=== PATIENT | male | born 1990 | race African-American/Black ===

== ENCOUNTER 2023-01-09 09:33 | Emergency (ER) | payer BC, OTHER ==
[2023-01-09 09:56] VITALS: BP 106/52; PULSE 54; RESP 18; TEMP 98.8; BMI 29.8
[2023-01-09] MEDS ORDERED: SODIUM CHLORIDE 1,000 ML IV STA ×2 (10:12→12:14)
[2023-01-09] MEDS ORDERED: ACETAMINOPHEN 1000 MG/100 ML BAG IVPB ONE (10:17)
[2023-01-09] MEDS ORDERED: ACETAMINOPHEN INJECTION 100 ML IVPB ONE (10:19)
[2023-01-09 11:33] LABS: BASO % 0.9 % (0-2.0); EOS % 1.9 % (0-4.5); HEMATOCRIT 40.8 % (35.4-49); HEMOGLOBIN 13.7 GM/dL (11.7-16.9); LYMPH % 52.7 % (8-40); MCH 27.2 pg (25.7-33.7); MCHC 33.6 g/dl (32.0-35.9); MEAN PLT VOLUME 9.1 fl (7.5-11.1); MONO % 9.3 % (3.8-10.2); NEUT % 35.2 % (42.8-82.8); PLATELET COUNT 178 10^3/uL (134-434); RBC 5.03 M/mm3 (4.00-5.60); RDW 14.3 % (11.9-15.9); WHITE BLOOD COUNT 3.9 K/mm3 (4.0-10.0)
[2023-01-09 11:34] LABS: PH,URINE 5.5 (5.0-8.0); URINE APPEARANCE CLEAR; URINE BILIRUBIN NEGATIVE (NEGATIVE); URINE COLOR YELLOW; URINE GLUCOSE (UA) NEGATIVE (NEGATIVE); URINE KETONE NEGATIVE (NEGATIVE); URINE LEUK ESTERASE NEGATIVE (NEGATIVE); URINE NITRITE NEGATIVE (NEGATIVE); URINE PROTEIN NEGATIVE (NEGATIVE); URINE UROBILINOGEN 0.2 mg/dL (0.2-1.0)
[2023-01-09 12:00] LABS: ALBUMIN 3.9 g/dl (3.4-5.0); CALCIUM 9.2 mg/dL (8.5-10.1)
[2023-01-09 12:03] LABS: CREATININE 1.6 mg/dL (0.55-1.3)
[2023-01-09 12:04] LABS: BILIRUBIN,TOTAL 0.5 mg/dL (0.2-1); TOT PROT 7.5 g/dl (6.4-8.2)
[2023-01-09 14:18] LABS: ALBUMIN 3.3 g/dl (3.4-5.0); BLOOD UREA NITROGEN 14.7 mg/dL (7-18); CALCIUM 8.1 mg/dL (8.5-10.1)
[2023-01-09 14:21] LABS: CREATININE 1.4 mg/dL (0.55-1.3)
[2023-01-09 14:23] LABS: BILIRUBIN,TOTAL 0.4 mg/dL (0.2-1); TOT PROT 6.3 g/dl (6.4-8.2)
== END 2023-01-09 15:11 | disposition home or self-care (01) ==
LOC: JERFT 09:33 → JER 09:33 → JERFT 15:11
PROC: 3E033GC Introduction of Other Therapeutic Substance into Peripheral Vein, Percutaneous Approach (ICD-10-PCS; principal; 2023-01-09)
PROC: 3E0337Z Introduction of Electrolytic and Water Balance Substance into Peripheral Vein, Percutaneous Approach (ICD-10-PCS; 2023-01-09)
PROC: 3E0337Z Introduction of Electrolytic and Water Balance Substance into Peripheral Vein, Percutaneous Approach (ICD-10-PCS; 2023-01-09)
DX: R35.0 Frequency of micturition (principal); M54.50 Low back pain, unspecified
CPT/HCPCS: 36415; 71046-TC-FY; 80053; 81003; 83690; 85025; 87086; 99284-25

== ENCOUNTER 2024-08-10 09:38 | Emergency (ER) | payer OTHER ==
[2024-08-10 09:51] VITALS: TEMP 97.5; BMI 25.2
[2024-08-10 11:16] LABS: BASO % 0.7 % (0-2.0); HEMATOCRIT 43.6 % (35.4-49); HEMOGLOBIN 14.7 GM/dL (11.7-16.9); LYMPH % 45.1 % (8-40); MCHC 33.7 g/dl (32.0-35.9); MEAN CELL VOLUME 83.2 fl (80-96); MEAN PLT VOLUME 9.6 fl (7.5-11.1); MONO % 9.6 % (3.8-10.2); NEUT % 42.6 % (42.8-82.8); PLATELET COUNT 146 10^3/uL (134-434); RBC 5.25 M/mm3 (4.00-5.60); RDW 13.9 % (11.9-15.9); WHITE BLOOD COUNT 3.5 K/mm3 (4.0-10.0)
[2024-08-10 11:40] LABS: PH,URINE 6.5 (5.0-8.0); URINE APPEARANCE CLEAR; URINE BILIRUBIN NEGATIVE (NEGATIVE); URINE COLOR YELLOW; URINE GLUCOSE (UA) NEGATIVE (NEGATIVE); URINE KETONE NEGATIVE (NEGATIVE); URINE LEUK ESTERASE NEGATIVE (NEGATIVE); URINE NITRITE NEGATIVE (NEGATIVE); URINE PROTEIN NEGATIVE (NEGATIVE); URINE UROBILINOGEN 0.2 mg/dL (0.2-1.0)
[2024-08-10 11:46] LABS: POTASSIUM 4.4 mmol/L (3.5-5.1)
[2024-08-10 11:48] LABS: CALCIUM 9.4 mg/dL (8.5-10.1)
[2024-08-10 11:49] LABS: ALBUMIN 4.2 g/dl (3.4-5.0)
[2024-08-10 11:52] LABS: CREATININE 1.8 mg/dL (0.55-1.3)
[2024-08-10 11:53] LABS: TOT PROT 7.5 g/dl (6.4-8.2)
[2024-08-10 13:51] VITALS: BP 120/69; PULSE 59; RESP 18
== END 2024-08-10 14:51 | disposition home or self-care (01) ==
LOC: JER 09:38
DX: R00.2 Palpitations (principal); M54.50 Low back pain, unspecified; M54.6 Pain in thoracic spine; R00.1 Bradycardia, unspecified
CPT/HCPCS: 36415; 71046-TC-FY; 80053; 81003; 84439; 84443; 84484; 85025; 87086; 93005; 93010; 99285-25

== ENCOUNTER 2024-08-20 19:30 | Emergency (ER) | payer OTHER ==
[2024-08-20 19:51] VITALS: BP 150/91; PULSE 79; RESP 18; TEMP 97.6; BMI 25.1
[2024-08-20] MEDS ORDERED: ACETAMINOPHEN 500 MG TABLET (FP) ONE (21:33)
[2024-08-20] MEDS: ACETAMINOPHEN 500 MG TABLET (FP) PO ONE (21:51)
[2024-08-20 21:54] LABS: HEMATOCRIT 42.6 % (35.4-49); HEMOGLOBIN 14.2 GM/dL (11.7-16.9); LYMPH % 51.8 % (8-40); MCHC 33.4 g/dl (32.0-35.9); MEAN PLT VOLUME 9.6 fl (7.5-11.1); MONO % 7.8 % (3.8-10.2); NEUT % 36.4 % (42.8-82.8); PLATELET COUNT 172 10^3/uL (134-434); RBC 5.07 M/mm3 (4.00-5.60); RDW 13.4 % (11.9-15.9); WHITE BLOOD COUNT 4.8 K/mm3 (4.0-10.0)
[2024-08-20 21:58] LABS: PH,URINE 5.5 (5.0-8.0); URINE APPEARANCE CLEAR; URINE BILIRUBIN NEGATIVE (NEGATIVE); URINE COLOR YELLOW; URINE GLUCOSE (UA) NEGATIVE (NEGATIVE); URINE KETONE NEGATIVE (NEGATIVE); URINE LEUK ESTERASE NEGATIVE (NEGATIVE); URINE NITRITE NEGATIVE (NEGATIVE); URINE PROTEIN NEGATIVE (NEGATIVE); URINE UROBILINOGEN 0.2 mg/dL (0.2-1.0)
[2024-08-20 22:30] LABS: POTASSIUM 4.7 mmol/L (3.5-5.1)
[2024-08-20 22:33] LABS: ALBUMIN 4.2 g/dl (3.4-5.0); CALCIUM 9.5 mg/dL (8.5-10.1)
[2024-08-20 22:36] LABS: CREATININE 1.8 mg/dL (0.55-1.3)
[2024-08-20 22:37] LABS: TOT PROT 7.6 g/dl (6.4-8.2)
== END 2024-08-21 01:35 | disposition home or self-care (01) ==
LOC: JER 19:30
DX: R10.9 Unspecified abdominal pain (principal)
CPT/HCPCS: 36415; 74176-TC; 80053; 81003; 85025; 87086; 99284-25